=== PATIENT | female | born 1975 | race Caucasian/White ===

== ENCOUNTER → 2016-10-19 | Outpatient (CLI) | payer OTHER ==
--- NOTE | 2016-10-19 08:18 | MM ---
Reason for exam: clinical finding. Last mammogram was performed 2 years and 8 months ago. History: Family history of breast cancer in maternal aunt. Physical Findings: Nurse Summary: 0.5cm nodule in the left breast at 1 o'clock (nurse leigh). MG 3D Diag Mammo W/Cad CHELSIE Bilateral CC and MLO view(s) were taken. Prior study comparison: February 26, 2014, bilateral MG diagnostic mammo w CAD CHELSIE. November 07, 2012, CAD bilateral diagnostic mammogram. The breast tissue is heterogeneously dense. This may lower the sensitivity of mammography. There is no discrete abnormality. No significant new findings when compared with previous films. These results were verbally communicated with the patient and result sheet given to the patient on 10/19/16. ASSESSMENT: Negative, BI-RAD 1 RECOMMENDATION: Routine screening mammogram of both breasts in 1 year.
--- NOTE | 2016-10-19 08:31 | USB ---
Reason for exam: screening (asymptomatic). History: Family history of breast cancer in maternal aunt. US Breast Limited LT Left breast ultrasound demonstrates a 4 x 2 x 4mm oval, cystic lesion at 2 o'clock. These results were verbally communicated with the patient and result sheet given to the patient on 10/19/16. ASSESSMENT: Benign, BI-RAD 2 RECOMMENDATION: Routine screening mammogram of both breasts in 1 year. Manage patient on a clinical basis.
== END | disposition home or self-care (01) ==
LOC: RADMAMWWP 06:50
PROVIDERS: ATTEND Obstetrics & Gynecology
DX: N64.4 Mastodynia (principal)
CPT/HCPCS: 76642; G0204; G0279

== ENCOUNTER → 2016-12-03 | Outpatient (CLI) | payer OTHER ==
--- NOTE | 2016-12-03 09:57 | BMR ---
EXAMINATION TYPE: MR breast BILAT wo/w con DATE OF EXAM: 12/03/2016 COMPARISON: 3-D mammogram October 19, 2016 BI-RADS 1. Targeted left breast ultrasound October 19, 2016 BI-R ADS 2. HISTORY: Left breast pain, burning, and thickened area. Prior hx of mastitis 2012. CONTRAST: Multiplanar, multisequence images of the breasts were acquired utilizing 6.5 mL intravenous Gadavist gadolinium contrast. TECHNIQUE: A series of fat and water weighted images in the long and short axis views of both breasts are obtained in conjunction with dynamic contrast MRI with subtraction technique. Three-dimensional and additional postprocessing imaging is created on independent workstation and reviewed during offi cial interpretation of this study. FINDINGS: Heterogeneously dense fibroglandular tissue in both breasts is redemonstrated. There are se veral tiny cysts simple appearing cysts scattered throughout both breasts redemonstrated slightly mor e prominent within dense tissue in the left breast. No suspicious skin thickening is seen bilaterally . No suspicious axillary or internal mammary adenopathy is identified. A few benign-appearing lymph n odes are noted in the bilateral axilla. The chest wall is intact. There is fairly moderate symmetric background enhancement. No pathologic enhancement is seen. No suspicious additional findings are seen in the remainder of the thorax. IMPRESSION: No MRI evidence for invasive malignancy in either breast. BI-RADS 2 benign findings. Recommendation: Return to routine follow-up, patient is due for bilateral breast mammogram in October 15 to be back on annual schedule.
== END | disposition home or self-care (01) ==
LOC: RADMRIMAIN 07:40
PROVIDERS: ATTEND Surgery
DX: N64.4 Mastodynia (principal); N64.59 Other signs and symptoms in breast
CPT/HCPCS: 77059; 0159T; A9581